=== PATIENT | female | born 1970 | race Caucasian/White ===

== ENCOUNTER 2019-05-23 16:19 | Emergency (ER) | payer OTHER ==
[~2019-05-23] VITALS: Ht 167.6 cm; Wt 103.9 kg
[2019-05-23 16:22] VITALS: Ht 167.6 cm; Wt 103.9 kg
[2019-05-23 21:06] VITALS: BP 120/78
== END 2019-05-23 20:30 | disposition home or self-care (01) ==
LOC: ED 16:19
DX: G44.209 Tension-type headache, unspecified, not intractable (principal); M62.830 Muscle spasm of back
CPT/HCPCS: 20552; J2001